=== PATIENT | male | born 1975 | race Caucasian/White ===

== ENCOUNTER 2023-01-30 11:05 | Outpatient (CLI) | payer OTHER ==
--- NOTE | 2023-01-30 11:33 | Sleep Patient Instructions ---
Sleep Center Visit Summary - Patient Visit Information Reason for Visit: Initial consult for evaluation of sleep disordered breathing and other sleep issues. - Patient Instructions Instructions Attached: Sleep Study Additional Instructions: You will be completing a sleep study, either an in-lab polysomnography (PSG) or home sleep study (HST). You will follow-up in the sleep care office after the sleep study is completed to hear the results and talk about therapy, if needed. You will be called by our office staff to schedule this appointment, but you may contact us with any questions. - Clinic Information Contact: [facility] [address] [place] [email or web address] T: [phone]
--- NOTE | 2023-01-30 11:40 | SLEEP CARE CONSULTATION ---
Information from patient questionnaire entered by Gabi Medrano. I have reviewed and concur with the information entered by Gabi Medrano. This document represents the service I personally performed and the decisions made by me, Blanca Jean ARNP. History of Present Illness Service Date and Time: 01/30/2023 1105 Reason for Visit: New patient Accompanied by: daughter Chief Complaint: reports: Snoring, Observed pauses in breathing Date of Onset: 10YR Usual bedtime: 11PM Time it takes to fall asleep: 10MIN Snores at night: Yes Observed to quit breathing while asleep: Yes Sleeps alone due to snoring: No Number of times waking at night: 2 Reasons for waking at night: reports: Bathroom, Other (UNKNOWN ). denies: Choking, Gasping for air Toss, Turn, or Twitch while sleeping: Yes Recalls having dreams: Yes Usually gets out of bed at: 545AM; weekends 08-829 Feels refreshed in the morning: No Morning headache: No Sleepy or fatigued during the day: Yes Ever fallen asleep while driving: No Takes day naps: No Dreams during day naps: Yes Prior sleep studies: No Additional HPI information: I had the pleasure of seeing BARRY BRUNER today regarding the possibility of him having a sleep disorder. His current complaints are snoring and observed pauses in breathing. He says his tells him that he snores loudly that has gotten worse as he gets older. His had noted gasping noises when he is sleeping. He says he used to drink casually but he has not had anything a drink in 6 months. He says he has not noticed any difference in his sleep with this change. He says he wakes up feeling refreshed mostly but this is with 8-9 hours of sleep. He is more tired when he gets less sleep. He says his father has sleep apnea but he is not currently using any therapy. - Parasomnia Symptoms Ever been unable to move upon waking from sleep: No Walks in sleep: No Talks in sleep: Yes (sometimes) Ever acted out dreams in sleep: No Ever felt weak in the knees when startled or emotional: No Bothered by creepy, crawly, restless sensations in legs: No Problems with memory or concentration: No Subjective Initial [place] Sleepiness Scale score: 7 (11/26/22) Past Medical History Past Medical History: reports: Gout, Anxiety (intermittent) Social History The patient's occupation is a TEACHER. Patient is and lives in . Have you smoked in the past 12 months: No Alcohol use: Yes Alcohol amount and frequency: 2-4 DRINKS PER MONTH Caffeine use: Yes Caffeine amount and frequency: LOTS 5-6 CUPS DAILY Family History Family history of sleep disordered breathing: Yes Family Hx Sleep Apnea: Father: Snoring, Sleep apnea - Treated Allergies and Home Medications Known drug allergies: No Drug allergies reviewed: Yes Home medication list reviewed: Yes Allergy and home medication list: Home Medications Medication Instructions Recorded Confirmed Last Taken Type Multivit,Calc,Min/FA/K1/Lycop [One See Rx Instructions .ROUTE .COMPLEX 01/30/23 01/30/23 Unknown History Daily Men's Multivitamin] Sertraline [Zoloft] See Rx Instructions .ROUTE .COMPLEX 01/30/23 01/30/23 Unknown History Uric Acid See Rx Instructions .ROUTE .COMPLEX 01/30/23 01/30/23 Unknown History Review of Systems Weight gain over past 5 years: 30 Cardiovascular: denies: high blood pressure Gastrointestinal: denies: heartburn Neurological: reports: seizure Ear/Nose/Throat: denies: tonsillectomy, wisdom teeth removed Physical Exam Vital signs obtained and entered by: GABI Bruno MA Blood Pressure: 126/88 (RIGHT ARM) Cuff size: regular Heart Rate: 82 O2 Saturation: 98 Height: 6 ft Weight: 256 lb 3.2 oz Body Mass Index: 34.7 BMI Classification: Obese Neck circumference: 17.75 Mouth and throat: narrow oropharynx Soft palate: long Hard palate: Torus palatinus (minimal) Uvula: normal Uvula visualization: 25% Mallampati Class III Tongue: enlarged in size with teeth kelly on lateral edges Tonsils: 1+ Neck: normal w/o lymphadenopathy or thyromegaly Heart: regular rate and rhythm Lungs: clear bilaterally Impression and Plan 1. Suspected Obstructive Sleep Apnea-Hypopnea Syndrome, as suggested by a history of loud and irregular snoring, gasping or choking in sleep and unrefreshed sleep. Narrow oropharynx and obesity are common predisposing factors for obstructive sleep apnea-hypopnea syndrome. I recommend proceeding to polysomnography to confirm the diagnosis and to assess severity. If the patient has significant sleep disordered breathing, a manual CPAP titration study will also be performed to find the optimal treatment pressure. I informed the patient of what the sleep studies involve and after some discussion, obtained agreement to proceed. The pathophysiology of obstructive sleep apnea-hypopnea syndrome was discussed with the patient and health risks of cardiovascular and cerebrovascular disease if not treated. Risks of drowsy driving discussed in detail and patient advised to avoid long distance driving and to pull up hand at the first sign of drowsiness. Patient agreed to plan. * Schedule polysomnography * Avoid long distance driving or driving when feeling sleepy. * Avoid alcohol, sedative and muscle relaxant around bedtime. * Attempt to lose weight. * Review instructions provided by trained office staff on how to prepare for the sleep study. * Return for follow-up after sleep study completed. Counseling Topics: Weight loss health impact Plan: PSG Visit Type: In Office Time Spent with Patient (minutes): 31 Provider Statement: I spent 100% of the Face to Face Visit with the patient with greater than 50% spent counseling the patient and coordination of care.
[2023-01-30 11:45] VITALS: BP 126/88; O2SAT 98
== END 2023-01-30 11:06 | disposition home or self-care (01) ==
LOC: SC 11:05
PROVIDERS: ATTEND Nurse Practitioner Family
DX: R06.83 Snoring (principal); G47.8 Other sleep disorders; R06.81 Apnea, not elsewhere classified; E66.9 Obesity, unspecified; Z68.34 Body mass index [BMI] 34.0-34.9, adult
CPT/HCPCS: 99203; 99212

== ENCOUNTER 2023-03-23 19:26 | Outpatient (CLI) | payer OTHER | END 2023-03-23 19:27 | disposition home or self-care (01) | LOC: SC 19:26 | PROVIDERS: ATTEND Nurse Practitioner Family | DX: G47.33 Obstructive sleep apnea (adult) (pediatric) (principal); E66.9 Obesity, unspecified; Z68.34 Body mass index [BMI] 34.0-34.9, adult | CPT/HCPCS: 95810 ==

== ENCOUNTER 2023-04-11 16:41 | Outpatient (CLI) | payer OTHER ==
--- NOTE | 2023-04-11 16:15 | SLEEP CARE CONSULTATION ---
Information from patient questionnaire entered by Courtney Medrano. I have reviewed and concur with the information entered by Courtney Medrano. This document represents the service I personally performed and the decisions made by , Blanca Jean ARNP. History of Present Illness Service Date and Time: 04/11/2023 1620 Initial [place] Sleepiness Scale score: 7 (11/26/22) Current [place] Sleepiness Scale score: 12 (04/11/2023) Additional HPI information: BARRY BRUNER returns via video appointment for follow up and results of the recently performed polysomnography. The sleep study showed severe obstructive sleep apnea with an average AHI of 41.4 and payton oxygen saturation of 73%. I explained the pathophysiology behind obstructive sleep apnea. We then spent quite a bit of time discussing different treatment options. For mild obstru ctive sleep apnea, surgery and oral appliance are alternatives to nasal CPAP therapy but in moderate or severe cases, nasal CPAP is the most effective and reliable treatment. Because apnea is primarily in supine position, then positional management therapy could be effective. Methods discussed such as positioning with pillows, using a T-shirt with tennis balls in the back or commercial products that have a pillow format on back to prevent supine sleep. I reviewed the impact of weight changes on sleep apnea and strongly recommended losing weight. After some discussion, the patient opted to go with the nasal CPAP therapy. A manual titration study will be ordered to find optimal pressure with office adjustments. Patient counseled not drink alcohol less than 4 hours before bedtime as it can increase snoring and apnea. Patient was cautioned about risks of drowsy driving until sleepiness symptoms resolve. Patient denies drowsy driving. Sleep Study - Results Type of Sleep Study: Polysomnography (COMPLETED 03/23/23) Prior sleep studies: No Polysomnography/Home Sleep Study results: IMPRESSION: The quality of the study is good. The patient had normal sleep efficiency. The sleep architecture was abnormal for sleep fragmentation and reduced amount of time spent in REM sleep. Respiratory monitoring showed severe obstructive sleep apnea-hypopnea (AHI = 41.4) associated with frequent arousals, oxyhemoglobin desaturation and moderate hypoxia (payton oxygen saturation of 73%). The respiratory events occurred predominantly during supine sleep (supine AHI = 72.3; non-supine = 10.49). Snore was light to very loud in intensity. There was no significant periodic leg movement of sleep. Cardiac rhythm was normal sinus rhythm without significant arrhythmia. No abnormal behavior (parasomnia) observed during the night. Allergies and Home Medications Known drug allergies: No Drug allergies reviewed: Yes Home medication list reviewed: Yes (no changes) Allergy and home medication list: Allergies No Known Drug Allergies Allergy (Verified 04/11/23 08:35) Review of Systems Review of systems same as previous: Yes (NO CHANGE) Physical Exam Vital signs obtained and entered by: COURTNEY Bruno MA Height: 6 ft (PER PT) Weight: 240 lb (PER PT) Body Mass Index: 32.5 BMI Classification: Obese Impression and Plan 1. Obstructive Sleep Apnea-Hypopnea Syndrome, severe, with lowest oxygen saturation of 73%. Obviously this is the cause of the patients symptoms of unrefreshed sleep, and excessive daytime sleepiness. Positive pressure therapy could benefit anxiety. As mentioned above, the patient will be started on nasal autoCPAP therapy. A manual titration study will be completed to find optimal treatment pressure with office adjustments. Compliance guidelines also reviewed. Because the apnea is more severe supine, I instructed to avoid sleeping supine using pillow positioning until able to start CPAP use. 2. Hypoxemia, moderate, with a payton oxygen saturation of 73% and 71.4 minutes spent under 90%. The baseline oxygen saturation was normal with an average oxygen saturation of 92%. 3. Obesity, unspecified. Currently patients BMI is 32.5. Obesity increases the risk of apnea, CPAP pressure requirements and overall health risks especially cardiovascular and diabetes. Thus patient is advised to lose weight. * Titration study. * Attempt to lose weight. * Avoid alcohol consumption near bedtime. * Avoid supine sleep until using CPAP. * Return after titration study to be set up with CPAP Counseling Topics: Sleeping position, Weight loss health impact Follow up with Sleep Care in: other (titration study follow up) Plan: Titration study Visit Type: Telehealth Video Video Type: [facility] Patient Location: Home Location of Provider: Office Patient agrees and consents to this telehealth visit type: Yes Time Spent with Patient (minutes): 20 Provider Statement: I spent 100% of the Telehealth Video Call with the patient with greater than 50% spent counseling the patient and coordination of care.
== END 2023-04-11 16:42 | disposition home or self-care (01) ==
LOC: SC 16:41
PROVIDERS: ATTEND Nurse Practitioner Family
DX: G47.33 Obstructive sleep apnea (adult) (pediatric) (principal); R09.02 Hypoxemia; E66.9 Obesity, unspecified; Z68.32 Body mass index [BMI] 32.0-32.9, adult

== ENCOUNTER 2023-05-11 19:37 | Outpatient (CLI) | payer OTHER | END 2023-05-11 19:38 | disposition home or self-care (01) | LOC: SC 19:37 | PROVIDERS: ATTEND Nurse Practitioner Family | DX: G47.33 Obstructive sleep apnea (adult) (pediatric) (principal); G47.61 Periodic limb movement disorder | CPT/HCPCS: 95811 ==

== ENCOUNTER 2023-07-26 15:27 | Outpatient (CLI) | payer OTHER ==
--- NOTE | 2023-07-26 15:27 | SLEEP CARE CONSULTATION ---
Information from patient questionnaire entered by Courtney Medrano. I have reviewed and concur with the information entered by Courtney Medrano. This document represents the service I personally performed and the decisions made by , Blanca Jean ARNP. History of Present Illness Service Date and Time: 07/26/2023 1520 Initial [place] Sleepiness Scale score: 7 (11/26/22) Current [place] Sleepiness Scale score: 3 (07/26/23) Additional HPI information: BARRY BRUNER returns via telephone appointment for follow up of a manual CPAP titration study performed on 05/11/2023. Previous study done on 03/23/2023 showed severe obstructive sleep apnea with AHI 41.4. The patient was informed of the following polysomnography findings: CPAP was initiated at 5 cmH2O and titrated up to BiPAP S/T at 22/18 cmH2O with a backup rate of 10 breaths per minute. BiPAP S/T at 20/16 cmH2O appeared to be best (residual AHI of 7.9 per hour on the pressure). There was supine sleep on the pressure. Oxygen saturation was mildly low due to frequent central apneas on CPAP and BiPAP S/T. The patient tolerated positive airway pressure therapy very well. The patients sleep efficiency was normal. I explained how BiPAP machine works and what to expect when using the machine. Using BiPAP every night in order to get used to it was emphasized. Patient advised to put CPAP mask on before getting into bed so as not to fall asleep without BiPAP. To assist acclimation to BiPAP use, it could also be used for a short time during day while reading or watching TV. The patient was instructed to call the BiPAP supplier to discuss any mechanical problem that may occur. If the mask given is uncomfortable or is difficult to keep on through the night even with adjustment, contact the BiPAP supplier as many will replace with another mask style if notified before 30 days. If snoring or perceives is not getting enough air or too much air from the machine, notify this office. Patient counseled not drink alcohol less than 4 hours before bedtime as it can increase snoring and apnea. Patient was cautioned about risks of drowsy driving until sleepiness symptoms resolve. Patient denies drowsy driving. Sleep Study - Results Type of Sleep Study: Polysomnography (COMPLETED 03/23/23 TITRATION 05/11/23) Prior sleep studies: No Polysomnography/Home Sleep Study results: IMPRESSION: The quality of the study is good. CPAP was initiated at 5 cmH2O and titrated up to BiPAP S/T at 22/18 cmH2O with a backup rate of 10 breaths per minute. BiPAP S/T at 20/16 cmH2O appeared to be best (residual AHI of 7.9 per hour on the pressure). There was supine sleep on the pressure. Oxygen saturation was mildly low due to frequent central apneas on CPAP and BiPAP S. The patient tolerated positive airway pressure therapy very well. The patients sleep efficiency was normal. The sleep architecture was abnormal for mild sleep fragmentation and slightly reduced amount of time spent in REM sleep. There was mild periodic leg movement of sleep, not contributing to the sleep fragmentation. Cardiac rhythm was normal sinus rhythm without significant arrhythmia. No abnormal behavior (parasomnia) observed during the night. CONCLUSIONS and RECOMMENDATIONS: 1. Complex sleep apnea-hypopnea (ICD-10 G47.33), severe (AHI was 41.4), best controlled with BiPAP S/T set at 20/16 cmH2O and a backup rate of 10 breaths per minute. Complex sleep apnea is diagnosed when there are treatment-emergent central apneas. CPAP and BiPAP S were ineffective. Mask used was a [employer] DreamWear nasal cushion mask size medium and [employer] Eson nasal mask. With BMI of 34.8 Kg/M2 , weight loss is also recommended. 2. Periodic leg movement of sleep (ICD G47.61), mild, treatment may be indicated. Clinical correlation advised. Allergies and Home Medications Known drug allergies: No Drug allergies reviewed: Yes Home medication list reviewed: Yes (no changes) Allergy and home medication list: Allergies No Known Drug Allergies Allergy (Verified 04/11/23 15:54) Review of Systems Review of systems same as previous: Yes (NO CHANGE) Physical Exam Vital signs obtained and entered by: COURTNEY Bruno MA Height: 6 ft (PER PT) Weight: 225 lb (PER PT) Body Mass Index: 30.5 BMI Classification: Obese Impression and Plan 1. Complex Sleep Apnea-Hypopnea Syndrome, severe. He returns to office after titration study to find optimal pressure for his sleep apnea. Positive pressure therapy could benefit anxiety. The patient will be started on nasal BiPAP therapy with pressure set at 20/16 cmH2O with 10 breaths per minute. Compliance guidelines also reviewed. A copy of compliance guidelines will be given for reference at check out. Because the apnea is more severe supine, I instructed to avoid sleeping supine using pillow positioning until able to start BiPAP use. 2. Periodic limb movement, mild, that did not fragment patients sleep. Periodic limb movement of sleep (PLMS) is characterized by episodes of repetitive limb movements that occur during sleep and usually involve the lower limbs. The etiology is unknown. Patient was advised that no treatment is needed at this time. If symptoms increase, then further evaluation is indicated. 3. Obesity, unspecified. Currently patients BMI is 30.5. Obesity increases the risk of apnea, BiPAP pressure requirements and overall health risks especially cardiovascular and diabetes. Thus patient is advised to lose weight. * Nasal BiPAP S/T therapy, pressure at 20/16 cmH2O with 10 breaths per minutes backup. * Attempt to lose weight. * Avoid alcohol consumption near bedtime. * Avoid supine sleep until using BiPAP. * The patient is again cautioned about driving until sleepiness completely resolves. * Return one month after BiPAP obtained. I will assess response to therapy and compliance at that time. Counseling Topics: Weight loss health impact Prescriptions: BiPAP (BiPAP ST) Plan: Start BiPAP and compliance follow up Visit Type: Telehealth Phone Video Type: Reg Patient Location: Work Location of Provider: Office Patient agrees and consents to this telehealth visit type: Yes Time Spent with Patient (minutes): 14 Provider Statement: I spent 100% of the Telehealth Phone Call with the patient with greater than 50% spent counseling the patient and coordination of care.
== END 2023-07-26 15:28 | disposition home or self-care (01) ==
LOC: SC 15:27
PROVIDERS: ATTEND Nurse Practitioner Family
DX: G47.33 Obstructive sleep apnea (adult) (pediatric) (principal); G47.61 Periodic limb movement disorder; E66.9 Obesity, unspecified; Z68.30 Body mass index [BMI] 30.0-30.9, adult
CPT/HCPCS: 99442